=== PATIENT | male | born 1935 | race Caucasian/White ===

== ENCOUNTER 2016-06-22 14:42 | Emergency (ER) | payer MEDICARE ==
[~2016-06-22] VITALS: Ht 185.4 cm; Wt 70.5 kg
[~2016-06-22 14:42] MED LIST: AMLO10TA5 PO; ARI5 PO; ASC500 PO; ASPI81TA2 PO; CHOL10008 PO; FISH PO; FOLI0.4T2 PO; GLUC-163 PO; LOV40 SUBQ; MULT-946 PO; NIAC500T82; TYL325 PO; UBID50TA3 PO; VITE PO; ZES10 PO; ZINC PO; [UNRECOGNIZED DRUG - CODE] PO; [UNRECOGNIZED DRUG - OTHER] PO; [UNRECOGNIZED DRUG - OTHER] PO
[2016-06-22 14:49] VITALS: BP 119/70; PULSE 76
[2016-06-22 16:32] LABS: BASOPHILS % (AUTO) 0.2 % (0-3); EOSINOPHILS % (AUTO) 1.8 % (0-5); MONOCYTES % (AUTO) 9.3 % (4-12); Mean Corpuscular Hemoglobin 31.1 pg (27.0-35.0); Mean Corpuscular Volume 97.2 fL (81-100); NEUTROPHILS % (AUTO) 71.2 % (40-74); Platelet Count 189 bil/L (150-400)
--- NOTE | 2016-06-22 16:32 | ED.REPORT ---
HPI-General Illness Date of Service Jun 22, 2016 ED Provider: Damien Quintero DO Pt is an 80 y/o male w/ a hx of dementia, HTN, hyperlipidemia, presenting to the ED due to gross hematuria onset 3 days ago. The patient was brought to a Urology Clinic today by his but was referred here. Pt denies flank pain, fever, chills, nausea, vomiting, abdominal pain. History is limited due to dementia. Nursing Notes Stated Complaint: POSS GROSS HEMATURIA/SENT FROM DR OFFICE Chief Complaint: Male Abdominal Pain Nursing Notes Reviewed: Yes Allergies: Coded Allergies: No Known Allergies (Unverified , 05/15/12) Scheduled ([Garlic with Parsley]) 1 TAB PO DAILY ([Ca, Mg, Zinc]) 1 TAB PO DAILY AmLODIPine-Expunged Drug, Do Not Renew! (AmLODIPine-Expunged Drug, Do Not Renew! ) 10 Mg Tablet 10 MG PO DAILY Ascorbic Acid-Expunged Drug, Do Not Renew! (Vitamin C-Expunged Drug, Do Not Renew!) 500 Mg Tablet 1,000 MG PO DAILY Aspirin-Expunged Drug, Do Not Renew! (Aspirin-Expunged Drug, Do Not Renew!) 81 Mg Tab 81 MG PO DAILY CHOLECALCIFEROL-Expunged Drug, Do Not Renew! (VITAMIN D3-Expunged Drug, Do Not Renew!) 1,000 Unit Tablet 1,000 UNIT PO DAILY Cholecalciferol-Expunged Drug, Do Not Renew! (Vitamin D3-Expunged Drug, Do Not Renew!) 1,000 Unit Tab.chew 1,000 UNIT PO DAILY Donepezil-Expunged Drug, Do Not Renew! (Donepezil-Expunged Drug, Do Not Renew!) 5 Mg Tablet 5 MG PO DAILY Enoxaparin-Expunged Drug, Do Not Renew! (Enoxaparin-Expunged Drug, Do Not Renew! ) 40 Mg Syr 40 MG SUBQ Q24 Fish Oil-Expunged Drug, Do Not Renew! (Fish Oil-Expunged Drug, Do Not Renew!) Cap 1 CAP PO DAILY Folic Acid-Expunged Drug, Do Not Renew! (Folic Acid-Expunged Drug, Do Not Renew! ) 0.4 Mg Tablet 400 MCG PO DAILY Glucosam/Msm/Chond/Bosw/Hyalur (Xcvercgnazy-Bfsedc-Pid Caplet) 1 Each Tab.er.12h 1 EACH PO DAILY Lisinopril-Expunged Drug, Do Not Renew! (Lisinopril-Expunged Drug, Do Not Renew! ) 10 Mg Tablet 10 MG PO DAILY MULTIVIT, IRON, MIN NO. 8, FA-Expunged Drug, (CWZYPJMYPNR-Z-Biedlcse Drug, Do Not Renew!) 1 Each Tablet 1 EACH PO DAILY NIACIN-Expunged Drug, Do Not Renew! (NIACIN-Expunged Drug, Do Not Renew!) 500 Mg Tablet 1 TAB DAILY Tocopherol-Expunged Drug, Do Not Renew! (Vitamin E-Expunged Drug, Do Not Renew! ) 400 Unit Cap 400 UNIT PO DAILY Ubidecarenone (Coq10) 50 Mg Tab.chew 100 MG PO DAILY Scheduled PRN Acetaminphen-Expunged Drug, Do Not Renew! (Acetaminphen-Expunged Drug, Do Not Renew!) 325 Mg Tablet 650 MG PO Q4H PRN PRN General Time Seen by MD: 16:29 Chief Complaint Other (Hematuria) Hx Obtained From: Patient, Spouse, Personal Financial Representative Arrived By: Ambulance Sudden in Onset?: No Onset Occurred: 3 days ago Symptom Duration: Since onset Severity: Current: No pain currently Severity: Maximum: No pain Past Medical History Past Medical History Dementia Hypertension Hyperlipidemia. Chronic back pain. Sleep apnea (on CPAP). Past Surgical History Prostate Review of Systems Full Review of Systems Constitutional: Denies: Chills, Fever Respiratory: Denies: Non-productive cough, Shortness of breath Cardiovascular: Denies: Chest pain, Dyspnea on exertion GI: Denies: Abdominal pain, Diarrhea, Nausea, Vomiting Male: Reports Hematuria, Denies Flank pain Complete sys rev & neg: except as marked. Physical Exam Vital Signs Vital Signs Date Time Temp Pulse Resp B/P Pulse Ox O2 Delivery O2 Flow Rate FiO2 06/22/16 17:50 36.4 68 16 123/73 97 Room Air 06/22/16 14:49 36.4 76 119/70 Initial VS: Reviewed Head / Eyes: Atraumatic, Normocephalic, PERRL ENT: Mucous membranes moist, Conjunctiva normal, No scleral icterus Neck: Supple, Full range of motion Respiratory: Breath sounds normal, Clear to auscultation, No respiratory distress Cardiovascular: Regular rate & rhythm, Heart sounds normal, Intact distal pulses Abdomen / GI: Soft, Non-tender Extremities: Vascular intact, Neuro intact, No swelling, No tenderness Skin: Warm, Dry, No cyanosis Psychiatric: Mood/affect normal, Behavior normal General/Constitutional: Awake, Cooperative, Not toxic appearing Appearance / Presentation: Positive: Frail, Underweight Pleasantly demented at baseline per Back: Painless range of motion, No CVA tenderness Male Genitourinary: Atraumatic, No meatal blood Blood-tinged urine in the diaper, no obvious swelling erythema or warmth to the genital area. Neurologic: Speech NL, No motor deficits Pleasantly demented at baseline per Interpretation & Diagnostics Interpretation & Diagnostics: CT KUB: IMPRESSION: 1. Nonobstructing right interpolar nephroliths. 2. Possible small nonobstructing right mid/proximal ureteral calculus, which is unchanged. Suboptimally visualized urinary bladder and distal ureters. 3. Allowing for differences in technique, no significant change in right interpolar renal cell carcinoma. 4. Large amount of stool within the rectal vault, indicating fecal impaction. Dictated by: Sol Fairchild M.D. on 06/22/2016 at 17:03 Approved by: Sol Fairchild M.D. on 06/22/2016 at 17:09 Lab Results Interpretation Result Diagram: 06/22/16 1627 06/22/16 1627 Test 06/22/16 16:27 White Blood Count 6.2th/mm3 (3.8-10.1) Red Blood Count 3.99mil/mm3 (4.40-5.80) Hemoglobin 12.4g/dL (13.8-17.2) Hematocrit 38.8% (41.0-50.0) Mean Corpuscular Volume 97.2fL (81-100) Mean Corpuscular Hemoglobin 31.1pg (27.0-35.0) Mean Corpuscular Hemoglobin Concent 32.0% (32.0-37.0) Red Cell Distribution Width 12.6% (12.3-15.4) Platelet Count 189bil/L (150-400) Neutrophils (%) (Auto) 71.2% (40-74) Lymphocytes (%) (Auto) 17.5% (14-46) Monocytes (%) (Auto) 9.3% (4-12) Eosinophils (%) (Auto) 1.8% (0-5) Basophils (%) (Auto) 0.2% (0-3) Sodium Level 136mEq/L (134-144) Potassium Level 4.0mEq/L (3.5-5.2) Chloride Level 100mEq/L (97-108) Carbon Dioxide Level 25mmol/L (18-29) Blood Urea Nitrogen 21mg/dL (8-27) Creatinine 0.59mg/dL (0.76-1.27) Estimat Glomerular Filtration Rate 140mL/min (>59) Glucose Level 99mg/dL (60-99) Lactic Acid Level 1.4mmol/L (0.4-2.0) Calcium Level 8.6mg/dL (8.5-10.1) Magnesium Level 2.0mg/dL (1.6-2.6) Total Bilirubin 0.3mg/dL (0.0-1.2) Aspartate Amino Transf (AST/SGOT) 20U/L (0-50) Alanine Aminotransferase (ALT/SGPT) 32U/L (0-44) Alkaline Phosphatase 74U/L (25-160) Total Protein 5.8g/dL (6.4-8.4) Albumin 3.4g/dL (3.4-5.0) Lab Results Interpretation: Urine dip: negative for infection Re-Eval/Medical Decision Med Decision/Clinical Course No evidence of infection, right-sided kidney stones, urine culture will be sent. Will follow up with urology. Consultation : Referral / Consult Name: Aubrey Vila MD Consulted With: Urology Call Returned at: 18:01 Shuttle Preparation Supervisor: Agrees with eval, Agrees with plan Note: He reviewed the CT scan. If his urine is infected, then start Keflex. Leave catheter in if he has urinary retention or gross hematuria. Counseled Regarding: Diagnosis, Lab results, Need for follow-up, When/why to return to ED Discharge & Departure Primary Impression: Right ureteral calculus Additional Impression: Gross hematuria Disposition: Home Discharge Condition All VS Reviewed: Yes Condition: Stable Patient Instructions: Acute Hematuria (ED), Renal Colic (ED) Additional Instructions: There is no sign of infection, you have kidney stones. Call your urologist and primary care doctor tomorrow for further evaluation. There is no indication for antibiotic at this time, nor a blood transfusion. A urine culture was sent and if this came back positive we will contact you. Return to the ER as needed for worsening signs or symptoms Referrals: Lorraine Palma (PCP) Aubrey Vila MD Attestation Portions of this note were transcribed by Krish Means. I, Dr. Quintero personally performed the history, physical exam and medical decision-making; I reviewed and confirmed the accuracy of the information in the transcribed note. Signed by George Hernandez, 06/22/16 - 1700 copies to: Lorraine Palma; Aubrey Vila MD, Timothy S DO Jun 22, 2016 16:32 KRISH MEANS Jun 22, 2016 16:41
[2016-06-22] MEDS ORDERED: 0.9% Sodium Chloride 1,000 ML IV ONE (16:40)
--- NOTE | 2016-06-22 17:11 | DRSVH ---
PROCEDURE: CT KUB ([id number]) INDICATIONS: hematuria TECHNIQUE: Noncontrast 5 mm thick sections acquired from the diaphragms to the symphysis. 5 mm thick coronal an d sagittal reformats were then performed. For radiation dose reduction, the following was used: aut omated exposure control, adjustment of mA and/or kV according to patient size. COMPARISON: [facility], CT, CT ABDOMEN PELVIS W CONTRAST, 05/05/2016, 7:34 AM. FINDINGS: Image quality: Excellent. Lung bases: Bibasilar scarring is present. Lung bases are otherwise clear. Heart size is enlarged. T here is calcification of the coronary vasculature. Urinary system: Both kidneys are normal in size. As before, there is an exophytic focus involving th e right interpolar kidney, corresponding to enhancing mass measuring 20 mm seen on the 05.05.16 CT exa mination. There is a nonobstructing 3 mm diameter calculus within the right interpolar kidney anterio rly. No left nephrolithiasis. No hydronephrosis or perinephric fat stranding. Both ureters appear no n-dilated throughout their expected courses. There is a 2 mm diameter calculus within the right retr operitoneum at the level of the mid/proximal right ureter, possibly indicating a nonobstructing calcu aj, as before. The distal ureters and urinary bladder are suboptimally visualized secondary to hip h ardware artifact. Other solid organs: Liver and spleen are normal in size. Gallbladder is contracted. Pancreas is no rmal in contours. No adrenal nodules. Peritoneum and bowel: Large amount of stool within the rectal vault. Unenhanced bowel loops demonstr ate otherwise normal wall thickness and caliber. No free fluid or air. Nodes and vessels: No retroperitoneal or mesenteric adenopathy by size criteria. Aorta and inferior vena cava are normal in caliber. Abdominal wall: No ventral hernias. Pelvis: No free pelvic fluid. No inguinal hernias or adenopathy. Bones: No suspicious bony lesions. Left hip arthroplasty. ORIF of the right femoral neck. No verteb ral body compression fractures. IMPRESSION: 1. Nonobstructing right interpolar nephroliths. 2. Possible small nonobstructing right mid/proximal ureteral calculus, which is unchanged. Suboptimal ly visualized urinary bladder and distal ureters. 3. Allowing for differences in technique, no significant change in right interpolar renal cell carcin chris. 4. Large amount of stool within the rectal vault, indicating fecal impaction. Dictated by: Sol Fairchild M.D. on 06/22/2016 at 17:03 Approved by: Sol Fairchild M.D. on 06/22/2016 at 17:09
[2016-06-22] MEDS ORDERED: Lidocaine 2% 5 mL Topical Jelly ONE (17:46)
[2016-06-22 17:50] VITALS: BP 123/73; PULSE 68; RESP 16; O2SAT 97
[2016-06-22 18:31] LABS: APPEARANCE,URINE CLOUDY (CLEAR,HAZY); COLOR,URINE BLOODY (YELLOW)
[2016-06-22 18:32] LABS: OCCULT BLOOD,URINE LARGE (NEGATIVE); PH,URINE 7.5 (5.0-8.0); UROBILINOGEN,URINE NORMAL (NORMAL)
[2016-06-22 18:56] VITALS: BP 123/73; PULSE 68; RESP 16; O2SAT 97
== END 2016-06-22 18:16 | disposition home or self-care (01) ==
LOC: SED 14:42
DX: N20.1 Calculus of ureter (principal); R31.0 Gross hematuria; I10 Essential (primary) hypertension; F03.90 Unspecified dementia, unspecified severity, without behavioral disturbance, psychotic disturbance, mood disturbance, and anxiety; E78.5 Hyperlipidemia, unspecified; Z79.82 Long term (current) use of aspirin
CPT/HCPCS: 36415; 74176; 80053; 81000; 83605; 83735; 85025; 87086; 87088; 99284; J7030